=== PATIENT | male | born 2000 | race Caucasian/White ===

== ENCOUNTER 2019-11-09 01:58 | Emergency (ER) | payer OTHER ==
[~2019-11-09] VITALS: Ht 172.7 cm; Wt 57.4 kg
[2019-11-09 02:01] VITALS: BP 121/81
--- NOTE | 2019-11-09 02:16 | NUR ---
AMBULATORY TO ROOM FROM TRIAGE C STEADY GAIT.
--- NOTE | 2019-11-09 02:33 | NUR ---
PT STATES HE CAME TO ED D/T CALLING POISON CONTROL & TOLD TO SEEK MEDICAL ATTENTION. MD AT BS TO REASSURE PT THAT DOSE HE TOOK IS NONE TOXIC. PT STATES HE FEELS MUCH BETTER HEARING THAT & LESS ANXIOUS. DENIES ANY OTHER NEEDS. AWARE OF PLAN TO DC HOME. IN NAD. FRIEND AT BS.
== END 2019-11-09 02:43 | disposition home or self-care (01) ==
LOC: ED 02:10
DX: T45.4X5A Adverse effect of iron and its compounds, initial encounter (principal); Y92.89 Other specified places as the place of occurrence of the external cause
CPT/HCPCS: 93005; 99283